=== PATIENT | female | born 1950 | race Caucasian/White ===

== ENCOUNTER 2017-12-04 15:10 | Inpatient (IN) | payer MEDICARE, OTHER ==
[2017-12-04 15:10] VITALS: BMI 28.3
[2017-12-04] MEDS ORDERED: Sodium Chloride 0.9% 1,000 ML IV ONE (16:22)
[2017-12-04] MEDS ORDERED: Iohexol 240 (50 ml) PO STA (16:22)
[2017-12-04] MEDS ORDERED: Iohexol 240 (50 ml) ONE (16:38)
[2017-12-04] MEDS ORDERED: Sodium Chloride 0.9% 1,000 ML ONE (16:39)
[2017-12-04 16:41] LABS: BASO % 0.3 % (0.0-2.0); EOS # 0.1 K/uL (0.0-0.7); EOS % 0.9 % (0.0-4.0); HEMOGLOBIN 13.5 g/dL (11.0-16.0); LYMPH # 1.9 K/uL (1.0-4.3); LYMPH % 32.1 % (20.0-40.0); MEAN CORPUSCULAR HEMOGLOBIN 29.3 pg (27.0-31.0); MEAN CORPUSCULAR HGB CONC 34.5 g/dL (33.0-37.0); MEAN PLATELET VOLUME 7.9 fL (7.2-11.7); MONO # 0.7 K/uL (0.0-0.8); MONO % 12.5 % (0.0-10.0); NEUT # 3.2 K/uL (1.8-7.0); NEUT % 54.2 % (50.0-75.0); NRBC % 0.1 % (0.0-2.0); RBC 4.61 Mil/uL (3.80-5.20); RED CELL DISTRIBUTION WIDTH 13.7 % (11.5-14.5); WHITE BLOOD COUNT 5.9 K/uL (4.8-10.8)
[2017-12-04 17:19] LABS: SQUAMOUS EPITHIAL 1 /hpf (0-5); URINE BACTERIA RARE (<OCC); URINE BILIRUBIN NEGATIVE (NEGATIVE); URINE BLOOD NEGATIVE (NEGATIVE); URINE CLARITY Clear (Clear); URINE COLOR Yellow (YELLOW); URINE GLUCOSE (UA) NORMAL (Normal); URINE LEUKOCYTE ESTERASE 1+ Leu/uL (Negative); URINE PROTEIN NEGATIVE (NEGATIVE); URINE UROBILINOGEN NORMAL mg/dL (0.2-1.0)
[2017-12-04 17:22] LABS: ALB/GLOB RATIO 1.1 (1.0-2.1); ALBUMIN 3.4 g/dL (3.5-5.0); ALT/SGPT 70 U/L (9-52); AST/SGOT 64 U/L (14-36); BLOOD UREA NITROGEN 12 mg/dL (7-17); CALCIUM 8.8 mg/dl (8.6-10.4); GFR AFRICAN-AMERICAN > 60; GFR NON-AFRICAN AMERICAN > 60; LIPASE 66 U/L (23-300)
--- NOTE | 2017-12-04 17:49 | C.PDOC ---
History Of Present Illness <Kimberly Ordoñez - Last Filed: 12/04/17 18:47> <RozRaimundo - Last Filed: 12/04/17 20:37> 67-year-old female, presents to the emergency department with complaints of 1.5 week duration of non-bloody/watery diarrhea. Patient has three episodes a day. One episode of vomiting and abdominal bloating. Patient notes she had a colonscopy done by Dr Horowitz last year. She was evaluated by her PMD when these symptoms started and was treated with Immodium and Levo. Today symptoms persisted and she was seen by Dr Horowitz, who instructed pt to come to ED for further evaluation. Denies fever, chest pain, sob, dysuria, urinary frequency, or travel. Information from her son. (Kimberly Ordoñez) History Per: Patient History/Exam Limitations: no limitations Current Symptoms Are (Timing): Still Present Severity: Moderate <Kimberly Ordoñez - Last Filed: 12/04/17 18:47> <AutumnmaureenRaimundo - Last Filed: 12/04/17 20:37> Time Seen by Provider: 12/04/17 15:45 Chief Complaint (Nursing): GI Problem Past Medical History Reviewed: Historical Data, Nursing Documentation, Vital Signs - Medical History PMH: Hypercholesterolemia, Hypothyroidism, Osteoporosis Denies: Chronic Kidney Disease Family History: States: No Known Family Hx - Social History Hx Alcohol Use: No Hx Substance Use: No <Kimberly Ordoñez - Last Filed: 12/04/17 18:47> Vital Signs: Last Vital Signs Temp 97.6 F 12/04/17 15:25 Pulse 97 H 12/04/17 18:00 Resp 20 12/04/17 18:00 BP 105/71 12/04/17 18:00 Pulse Ox 98 12/04/17 18:55 Review Of Systems Constitutional: Negative for: Fever, Chills Cardiovascular: Negative for: Chest Pain, Palpitations Respiratory: Negative for: Shortness of Breath Gastrointestinal: Positive for: Diarrhea. Negative for: Nausea, Vomiting, Hematochezia, Hematemesis Musculoskeletal: Negative for: Back Pain <GlennapaytonrosanaKimberly - Last Filed: 12/04/17 18:47> Physical Exam - Physical Exam Appears: Non-toxic, No Acute Distress Skin: Normal Color, Warm, Dry, No Rash Head: Atraumatic, Normacephalic Eye(s): bilateral: Normal Inspection, EOMI Nose: Normal Oral Mucosa: Moist Lips: Normal Appearing Neck: Normal ROM Chest: Symmetrical Cardiovascular: Rhythm Regular Respiratory: Normal Breath Sounds, No Accessory Muscle Use Gastrointestinal/Abdominal: Soft, No Tenderness, No Guarding, No Rebound Extremity: Normal ROM, No Deformity, No Swelling Neurological/Psych: Oriented x3, Normal Speech <Kimberly Ordoñez - Last Filed: 12/04/17 18:47> ED Course And Treatment - Laboratory Results Result Diagrams: 12/04/17 16:34 12/04/17 16:34 O2 Sat by Pulse Oximetry: 98 (RA) Pulse Ox Interpretation: Normal Progress Note: Bloodwork, CT Abd/Pel, stool culture ordered and reviewed. Patient treated with Protonix, and IVFs. Case discussed with Dr Horowitz,who requests admission for further evaluation and observation. Case endorsed to Dr Courtney, pending CT and re-evaluation. <Kimberly Ordoñez - Last Filed: 12/04/17 18:47> - Laboratory Results Result Diagrams: 12/04/17 16:34 12/04/17 16:34 <Raimundo Courtney - Last Filed: 12/04/17 20:37> Disposition - Disposition Disposition Time: 18:53 <Kimberly Ordoñez - Last Filed: 12/04/17 18:47> Discussed With DrRico: Risa Waters Comment: accepted the pt onhis service and took over the care at 8:36 PM Doctor Will See Patient In The: Hospital Counseled Patient/Family Regarding: Studies Performed, Diagnosis - POA Present On Arrival: Poor Glycemic Control <Raimundo Courtney - Last Filed: 12/04/17 20:37> - Disposition Disposition: HOSPITALIZED Condition: FAIR Forms: [facility] (Icelandic) - Clinical Impression Clinical Impression: Colitis, Abdominal pain, Diarrhea - Scribe Statement The provider has reviewed the documentation as recorded by the Scribe (Ivan Hussein) <Kimberly Ordoñez - Last Filed: 12/04/17 18:47> <Raimundo Courtney - Last Filed: 12/04/17 20:37> - Scribe Statement All medical record entries made by the Scribe were at my direction and personally dictated by me. I have reviewed the chart and agree that the record accurately reflects my personal performance of the history, physical exam, medical decision making, and the department course for this patient. I have also personally directed, reviewed, and agree with the discharge instructions and disposition. (Kimberly Ordoñez) Decision To Admit <Kimberly Ordoñez - Last Filed: 12/04/17 18:47> - Pt Status Changed To: Hospital Disposition Of: Inpatient - Admit Certification Admit to Inpatient:: After my assessment, the patient will require hospitalization for at least two midnights. This is because of the severity of symptoms shown, intensity of services needed, and/or the medical risk in this patient being treated as an outpatient. - InPatient: Physician Admission Certification: I certify that this patient requires 2 or more midnights of care for the following reason:: After my assessment, the patient will require hospitalization for at least two midnights. This is because of the severity of symptoms shown, intensity of services needed, and/or the medical risk in this patient being treated as an outpatient. - . Bed Request Type: Regular Admitting Physician: Risa Waters <Raimundo Courtney - Last Filed: 12/04/17 20:37> - . Patient Diagnosis: Colitis, Abdominal pain, Diarrhea
[2017-12-04] MEDS ORDERED: Iodixanol 320 MG/ML 100 ML BOTTLE IV ONE (18:29)
--- NOTE | 2017-12-04 20:32 | CT ---
EXAM: CT Abdomen and Pelvis With Intravenous Contrast EXAM DATE/TIME: Exam ordered 12/04/2017 4:23 PM CLINICAL HISTORY: 67 years old, female; Pain and signs and symptoms; Other: Diarrhea; Abdominal pain; Generalized TECHNIQUE: Axial computed tomography images of the abdomen and pelvis with intravenous contrast. All CT scans at this facility use one or more dose reduction techniques, viz.: automated exposure control; ma/kV adjustment per patient size (including targeted exams where dose is matched to indication; i.e. head); or iterative reconstruction technique. Coronal and sagittal reformatted images were created and reviewed. CONTRAST: 100 mL of visipaque 320 administered intravenously. COMPARISON: No relevant prior studies available. FINDINGS: Lung bases: Subpleural groundglass opacity is noted in the left lower lobe. There is a small hiatal hernia. Heart: Coronary artery calcification. ABDOMEN: Liver: Unremarkable. No mass. Gallbladder and bile ducts: Tiny hyperdensities are suggested along the dependent gallbladder wall. This could represent gallstones. No ductal dilation. Pancreas: Unremarkable. No mass. No ductal dilation. Spleen: Unremarkable. No splenomegaly. Adrenals: Unremarkable. No mass. Kidneys and ureters: There is an accessory retroaortic left renal vein. No hydronephrosis. Stomach and bowel: Air-fluid levels are noted throughout the colon. No pericolonic inflammation or mucosal thickening. Coarse calcification is noted within the retro-colonic fat posterior to the descending colon. This may represent a calcified lymph node. No obstruction. PELVIS: Appendix: No findings to suggest acute appendicitis. Bladder: Unremarkable. No mass. Reproductive: Unremarkable as visualized. ABDOMEN and PELVIS: Intraperitoneal space: Unremarkable. No free air. No significant fluid collection. Bones/joints: Mild degenerative changes are noted of the dorsal spine. No acute fracture. No dislocation. Soft tissues: Unremarkable. Vasculature: See above. Lymph nodes: Scattered lymph nodes are noted within the mesenteric fat. IMPRESSION: 1. Air-fluid levels noted throughout the colon consistent with history of diarrhea. No evidence of colitis or obstruction 2. Tiny hyperdensities are suggested along the dependent gallbladder wall. This could represent gallstones. If intervention is anticipated, this should be confirmed with ultrasound. 3. Small hiatal hernia. 4. Subpleural groundglass opacity in the left lower lobe laterally could represent an area of pneumonitis.
[2017-12-04] MEDS ORDERED: metroNIDAZOLE IV 500 mg/100 ml 500 MG/100 ML BAG IVPB STA (20:37)
[2017-12-04] MEDS ORDERED: Piperacillin/Tazobact 3.375 gm 100 ML IVPB STA (20:37)
[2017-12-04] MEDS ORDERED: metroNIDAZOLE IV 500 mg/100 ml 500 MG/100 ML BAG ONE (20:45)
[2017-12-04] MEDS ORDERED: Piperacillin/Tazobact 3.375 gm 100 ML IVPB ONE (20:45)
--- NOTE | 2017-12-04 23:46 | CP.PCM.HP ---
Past Patient History - Past Medical History & Family History Past Medical History?: Yes - Past Social History Smoking Status: Never Smoked - CARDIAC Hx Hypercholesterolemia: Yes - PULMONARY Hx Respiratory Disorders: No - NEUROLOGICAL Hx Neurological Disorder: No - HEENT Hx HEENT Problems: No - RENAL Hx Chronic Kidney Disease: No - ENDOCRINE/METABOLIC Hx Hypothyroidism: Yes - HEMATOLOGICAL/ONCOLOGICAL Hx Blood Disorders: No - INTEGUMENTARY Hx Dermatological Problems: No - MUSCULOSKELETAL/RHEUMATOLOGICAL Hx Osteoporosis: Yes - GASTROINTESTINAL Hx Gastrointestinal Disorders: No - GENITOURINARY/GYNECOLOGICAL Hx Genitourinary Disorders: No - PSYCHIATRIC Hx Substance Use: No - SURGICAL HISTORY Hx Surgeries: Yes Hx Orthopedic Surgery: Yes (RT KNEE SX) - ANESTHESIA Hx Anesthesia: Yes Hx Anesthesia Reactions: No Hx Malignant Hyperthermia: No Meds Allergies/Adverse Reactions: Allergies Allergy/AdvReac Type Severity Reaction Status Date / Time No Known Allergies Allergy Verified 12/04/17 15:27 Results - Vital Signs Recent Vital Signs: Last Vital Signs Temp 98 F 12/04/17 22:37 Pulse 92 H 12/04/17 22:37 Resp 20 12/04/17 22:37 BP 100/75 12/04/17 22:37 Pulse Ox 98 12/04/17 22:37 - Labs Result Diagrams: 12/04/17 16:34 12/04/17 16:34 Labs: Laboratory Results - last 24 hr 12/04/17 12/04/17 12/04/17 16:34 16:34 17:04 WBC 5.9 RBC 4.61 Hgb 13.5 Hct 39.2 MCV 85.0 MCH 29.3 MCHC 34.5 RDW 13.7 Plt Count 278 MPV 7.9 Neut % (Auto) 54.2 Lymph % (Auto) 32.1 [place] % (Auto) 12.5 H Eos % (Auto) 0.9 Baso % (Auto) 0.3 Neut # (Auto) 3.2 Lymph # (Auto) 1.9 [place] # (Auto) 0.7 Eos # (Auto) 0.1 Baso # (Auto) 0.0 Sodium 136 Potassium 3.3 L Chloride 103 Carbon Dioxide 22 Anion Gap 14 BUN 12 Creatinine 0.8 Est GFR ( Amer) > 60 Est GFR (Non-Af Amer) > 60 Random Glucose 131 H Calcium 8.8 Total Bilirubin 0.9 AST 64 H ALT 70 H Alkaline Phosphatase 60 Total Protein 6.4 Albumin 3.4 L Globulin 3.0 Albumin/Globulin Ratio 1.1 Lipase 66 Urine Color Yellow Urine Clarity Clear Urine pH 6.0 Ur Specific [place] 1.004 Urine Protein Negative Urine Glucose (UA) Normal Urine Ketones Trace Urine Blood Negative Urine Nitrate Negative Urine Bilirubin Negative Urine Urobilinogen Normal Ur Leukocyte Esterase 1+ H Urine WBC (Auto) 5 Urine RBC (Auto) < 1 Ur Squamous Epith Cells 1 Urine Bacteria Rare Stool Occult Blood C. difficile Ag & Toxin 12/04/17 12/04/17 19:09 19:09 WBC RBC Hgb Hct MCV MCH MCHC RDW Plt Count MPV Neut % (Auto) Lymph % (Auto) [place] % (Auto) Eos % (Auto) Baso % (Auto) Neut # (Auto) Lymph # (Auto) [place] # (Auto) Eos # (Auto) Baso # (Auto) Sodium Potassium Chloride Carbon Dioxide Anion Gap BUN Creatinine Est GFR ( Amer) Est GFR (Non-Af Amer) Random Glucose Calcium Total Bilirubin AST ALT Alkaline Phosphatase Total Protein Albumin Globulin Albumin/Globulin Ratio Lipase Urine Color Urine Clarity Urine pH Ur Specific [place] Urine Protein Urine Glucose (UA) Urine Ketones Urine Blood Urine Nitrate Urine Bilirubin Urine Urobilinogen Ur Leukocyte Esterase Urine WBC (Auto) Urine RBC (Auto) Ur Squamous Epith Cells Urine Bacteria Stool Occult Blood Negative C. difficile Ag & Toxin Negative
[2017-12-04] MEDS: Dextrose 5%/0.45% NS 1,000 ML IV SCH (23:57)
[2017-12-05] MEDS: (Novolin R) Insulin Human Regular 100 units/ml vial SC SCH ×4 (07:27→21:54)
--- NOTE | 2017-12-05 07:31 | CP.PCM.PN ---
Addendum entered and electronically signed by Toan Oscar DO 12/05/17 16:33: Stop Cipro per Dr. Waters Continue D5/Ns @ 40cc/hr pt NPO for US Abd Original Note: <Toan Oscar - Last Filed: 12/05/17 16:29> Subjective - Date & Time of Evaluation Date of Evaluation: 12/05/17 Time of Evaluation: 07:30 - Subjective Subjective: PGY-[address] Waters's service: Pt seen and examined at bedside. Nursing reports no acute events overnight. Patient denies abd pain, nausea, or vomiting this AM, but admits two episodes of watery diarrhea overnight. Patient states she was able to tolerated full breakfast this AM without difficulty. Patient is 67 yo female, with PMHx hypothyroidism, T2DM (diagnosed ~2009), presenting for intractable diarrhea. Patient reports 2 1/2 week of history of persistent non-bloody watery diarrhea. Patient sought relief at Dr. Waters's office and was given Levofloxacin and loperamide. This stopped diarrhea for two days, but diarrhea returned on friday of this week. Dr. Waters referred patient to Dr. Horowitz, who saw pt in his office. Because of two episodes of vomiting on , 12/04, Dr. Horowitz recommended pt come to ED. Patient denies abd pain at any point in course. Objective - Vital Signs/Intake and Output Vital Signs (last 24 hours): Temp Pulse Resp BP Pulse Ox 98 F 74 20 103/63 98 12/05/17 03:37 12/05/17 03:37 12/05/17 03:37 12/05/17 03:37 12/05/17 03:37 - Medications Medications: Current Medications Cyanocobalamin (Vitamin B12 1000 Mcg Tab) 1,000 mcg PO DAILY KEVIN Enoxaparin Sodium (Lovenox) 40 mg SC DAILY KEVIN Glimepiride (Amaryl) 1 mg PO DAILY KEVIN Home Med (Alendronate Sodium [Binosto]) 1 tab PO DAILY KEVIN Home Med (Mv,Min10/Folic Acid/D3/Ala/Lut [Strovite One Caplet]) 1 tab PO DAILY KEVIN Home Med (Simvastatin [Simvastatin]) 1 tab PO DAILY KEVIN Dextrose/Sodium Chloride (Dextrose 5%/0.45% Ns 1000 Ml) 1,000 mls @ 40 mls/hr IV .Q24H [facility] Last Admin: 12/04/17 23:57 Dose: 40 mls/hr Ciprofloxacin (Cipro 400mg/200ml Dsw) 400 mg in 200 mls @ 133 mls/hr IVPB BID KEVIN PRN Reason: Protocol Metronidazole (Flagyl) 500 mg in 100 mls @ 100 mls/hr IVPB BID KEVIN PRN Reason: Protocol Insulin Human Regular (Novolin R) 0 unit SC ACHS KEVIN PRN Reason: Protocol Last Admin: 12/05/17 07:27 Dose: Not Given Levothyroxine Sodium (Synthroid) 1,000 mcg PO DAILY KEVIN Loperamide HCl (Imodium) 1 mg PO TID PRN PRN Reason: Diarrhea Pantoprazole Sodium (Protonix Ec Tab) 40 mg PO DAILY KEVIN Sitagliptin Phosphate (Januvia) 1 mg PO DAILY [facility] - Labs Labs: 12/04/17 16:34 12/04/17 16:34 - Constitutional Appears: Non-toxic, No Acute Distress - Head Exam Head Exam: ATRAUMATIC, NORMAL INSPECTION - Eye Exam Eye Exam: EOMI. absent: Scleral icterus Pupil Exam: PERRL - ENT Exam ENT Exam: Mucous Membranes Moist - Neck Exam Neck Exam: Full ROM - Respiratory Exam Respiratory Exam: Clear to Ausculation Bilateral, NORMAL BREATHING PATTERN. absent: Rales, Rhonchi, Wheezes - Cardiovascular Exam Cardiovascular Exam: REGULAR RHYTHM, +S1, +S2 - GI/Abdominal Exam GI & Abdominal Exam: Soft, Normal Bowel Sounds. absent: Distended, Firm, Guarding, Tenderness, Rebound Additional comments: no rovsing/escoto/mcburney - Extremities Exam Extremities Exam: Normal Inspection. absent: Pedal Edema, Tenderness - Back Exam Back Exam: absent: CVA tenderness (L), CVA tenderness (R) - Neurological Exam Neurological Exam: Alert, Awake, Oriented x3 - Psychiatric Exam Psychiatric exam: Normal Affect, Normal Mood - Skin Skin Exam: Dry, Normal Color, Warm Assessment and Plan - Assessment and Plan (Free Text) Plan: Intractable diarrhea Admit to med/surg WBC 5.9, Afebrile Dr. Horowitz GI work and family life consultant - help appreciated CT A/P (12/04/17): Air fluid levels noted throughout colon c/w hx of diarrhea. No colitis/obstruction. Hyperdensities in gallbladder wall that could represent gallstones. Small hiatal hernia. Groundglass opacity in in LLL that could represent area of pneumonitis. (see full report) Colonoscopy (08/2016): Non-bleeding external/internal hemorrhoids. Congested mucosa in distal descending colon. Biopsied. Moderate colonic spasm. Terminated early due to bradycardic episode. Lipase 66 Stool occult blood negative C diff negative Cipro 400mg IV Q12H Flagyl 500mg IV Q12H - Zosyn x1 in ED Loperamide 2mg PO TID PRN f/u O&P, fecal leukocytes Transaminitis AST/ALT 64/70 f/u hepatitis panel f/u US Abd Gallstones? CT A/P (12/04/17): Hyperdensities in gallbladder wall that could represent gallstones. f/u US Abd Type two diabetes mellitus Accuchecks ACHS Hypoglycemia protocol Glimepiride 4mg PO daily Januvia 25mg PO Daily Crestor 5mg PO HS f/u A1C Hypothyroidism Synthroid 25mcg PO QAM f/u TSH, Free T4 Abnormal UA UA (12/04/17): 1+ LE, WBC 5/HPF, negative nitrate, clean catch Pt denies symptoms - no treatment Electrolyte abnormality K 3.3, repleted Stiff neck Lidocaine 5% patch Daily Prophylaxis Heart healthy diet Lovenox 40mg SC daily Protonix 40mg PO Daily SCDs Toan Oscar PGY-[address] Waters <Risa Waters - Last Filed: 12/08/17 13:26> Objective - Vital Signs/Intake and Output Vital Signs (last 24 hours): Temp Pulse Resp BP Pulse Ox 97.3 F L 80 20 96/61 L 100 12/08/17 10:06 12/08/17 10:06 12/08/17 10:06 12/08/17 10:06 12/08/17 10:06 Intake and Output: 12/08/17 12/08/17 06:59 18:59 Intake Total 1300 400 Balance 1300 400 - Medications Medications: Current Medications Cyanocobalamin (Vitamin B12 1000 Mcg Tab) 1,000 mcg PO DAILY [facility] Last Admin: 12/08/17 10:23 Dose: 1,000 mcg Dextrose (Dextrose 50% Inj) 0 ml IV STAT PRN; Protocol PRN Reason: Hypoglycemia Protocol Last Admin: 12/06/17 22:06 Dose: 50 ml Dextrose (Glutose 15) 0 gm PO ONCE PRN; Protocol PRN Reason: Hypoglycemia Protocol Enoxaparin Sodium (Lovenox) 40 mg SC DAILY [facility] Last Admin: 12/08/17 10:23 Dose: 40 mg Glimepiride (Amaryl) 4 mg PO DAILY [facility] Last Admin: 12/06/17 10:26 Dose: 4 mg Glucagon (Glucagen Diagnostic Kit) 0 mg IM STAT PRN; Protocol PRN Reason: Hypoglycemia Protocol Metronidazole (Flagyl) 500 mg in 100 mls @ 100 mls/hr IVPB BID KEVIN PRN Reason: Protocol Last Admin: 12/08/17 10:21 Dose: 100 mls/hr Dextrose (Dextrose 5% In Water 1000 Ml) 1,000 mls @ 0 mls/hr IV .Q0M PRN; Protocol; Per Protocol PRN Reason: Hypoglycemia Protocol Insulin Human Regular (Novolin R) 0 unit SC ACHS KEVIN PRN Reason: Protocol Last Admin: 12/08/17 12:38 Dose: 1 unit Levothyroxine Sodium (Synthroid) 25 mcg PO 0630 [facility] Last Admin: 12/08/17 05:38 Dose: Not Given Lidocaine (Lidoderm) 1 ea TD DAILY [facility] Last Admin: 12/08/17 10:22 Dose: 1 ea Loperamide HCl (Imodium) 2 mg PO TID PRN PRN Reason: Diarrhea Pantoprazole Sodium (Protonix Ec Tab) 40 mg PO DAILY [facility] Last Admin: 12/08/17 10:22 Dose: 40 mg Rosuvastatin Calcium (Crestor) 5 mg PO HS [facility] Last Admin: 12/07/17 21:11 Dose: 5 mg Sitagliptin Phosphate (Januvia) 25 mg PO DAILY [facility] Last Admin: 12/06/17 10:25 Dose: 25 mg Vitamin B Complex/Vitamin C (Berocca) 1 tab PO DAILY [facility] Last Admin: 12/08/17 10:36 Dose: 1 tab - Labs Labs: 12/06/17 07:12 12/06/17 07:12 PT 13.4 SECONDS (9.7-12.2) H 12/06/17 07:12 INR 1.2 12/06/17 07:12 APTT 28 SECONDS (21-34) 12/06/17 07:12
[2017-12-05] MEDS: Vitamin B Complex/Vitamin C Tab PO SCH (09:36)
[2017-12-05] MEDS: Pantoprazole 40 mg EC Tab PO SCH (09:39)
[2017-12-05] MEDS: Enoxaparin 40 mg Syringe SC SCH (09:42)
[2017-12-05] MEDS ORDERED: Ciprofloxacin 400mg/200ml D5W 400 MG/200 ML BAG IVPB SCH (10:00)
[2017-12-05] MEDS ORDERED: FOLIC ACID PO SCH (10:00)
[2017-12-05] MEDS ORDERED: Home Med 1 UNIT (Alendronate Sodium [Binosto] 1 TAB) PO SCH ×2 (10:00)
[2017-12-05] MEDS ORDERED: ALA PO SCH (10:00)
[2017-12-05] MEDS ORDERED: Levothyroxine 25 MCG TAB PO SCH ×2 (10:00)
[2017-12-05] MEDS ORDERED: D3 PO SCH (10:00)
[2017-12-05] MEDS ORDERED: MV MIN10 PO SCH (10:00)
[2017-12-05] MEDS ORDERED: LUT PO SCH (10:00)
[2017-12-05] MEDS ORDERED: Home Med 1 UNIT (Simvastatin [Simvastatin] 1 TAB) PO SCH (10:00)
[2017-12-05] MEDS: metroNIDAZOLE IV 500 mg/100 ml 500 MG/100 ML BAG IVPB SCH ×2 (10:46→17:50)
[2017-12-05] MEDS ORDERED: Glucagon Recombinant 1 mg Inj IM PRN (12:41)
[2017-12-05] MEDS ORDERED: Dextrose 50% SYRINGE Inj (50 ml) IV PRN (12:41)
[2017-12-05] MEDS ORDERED: Potassium Chloride 20 mEq ER Tab PO ONE (13:04)
[2017-12-05] MEDS: Lidocaine 5% Patch TD SCH (13:33)
--- NOTE | 2017-12-05 16:42 | CP.PCM.PN ---
Subjective - Date & Time of Evaluation Date of Evaluation: 12/05/17 Time of Evaluation: 09:40 - Subjective Subjective: clinically same Objective - Vital Signs/Intake and Output Vital Signs (last 24 hours): Temp Pulse Resp BP Pulse Ox 98.1 F 73 20 94/61 L 98 12/05/17 08:44 12/05/17 08:44 12/05/17 08:44 12/05/17 08:44 12/05/17 08:44 Intake and Output: 12/05/17 12/05/17 06:59 18:59 Intake Total 960 Balance 960 - Medications Medications: Current Medications Cyanocobalamin (Vitamin B12 1000 Mcg Tab) 1,000 mcg PO DAILY [facility] Last Admin: 12/05/17 09:36 Dose: 1,000 mcg Dextrose (Dextrose 50% Inj) 0 ml IV STAT PRN; Protocol PRN Reason: Hypoglycemia Protocol Dextrose (Glutose 15) 0 gm PO ONCE PRN; Protocol PRN Reason: Hypoglycemia Protocol Enoxaparin Sodium (Lovenox) 40 mg SC DAILY [facility] Last Admin: 12/05/17 09:42 Dose: 40 mg Glimepiride (Amaryl) 4 mg PO DAILY [facility] Last Admin: 12/05/17 09:42 Dose: 4 mg Glucagon (Glucagen Diagnostic Kit) 0 mg IM STAT PRN; Protocol PRN Reason: Hypoglycemia Protocol Dextrose/Sodium Chloride (Dextrose 5%/0.45% Ns 1000 Ml) 1,000 mls @ 40 mls/hr IV .Q24H [facility] Last Admin: 12/04/17 23:57 Dose: 40 mls/hr Metronidazole (Flagyl) 500 mg in 100 mls @ 100 mls/hr IVPB BID KEVIN PRN Reason: Protocol Last Admin: 12/05/17 10:46 Dose: 100 mls/hr Dextrose (Dextrose 5% In Water 1000 Ml) 1,000 mls @ 0 mls/hr IV .Q0M PRN; Protocol; Per Protocol PRN Reason: Hypoglycemia Protocol Insulin Human Regular (Novolin R) 0 unit SC ACHS [facility] PRN Reason: Protocol Last Admin: 12/05/17 12:01 Dose: Not Given Levothyroxine Sodium (Synthroid) 25 mcg PO 0630 [facility] Lidocaine (Lidoderm) 1 ea TD DAILY [facility] Last Admin: 12/05/17 13:33 Dose: 1 ea Loperamide HCl (Imodium) 2 mg PO TID PRN PRN Reason: Diarrhea Pantoprazole Sodium (Protonix Ec Tab) 40 mg PO DAILY [facility] Last Admin: 12/05/17 09:39 Dose: 40 mg Pneumococcal Polyvalent Vaccine (Pneumovax 23 Vaccine) 0.5 ml IM .ONCE ONE Stop: 12/06/17 10:01 Rosuvastatin Calcium (Crestor) 5 mg PO [facility] Sitagliptin Phosphate (Januvia) 25 mg PO DAILY [facility] Last Admin: 12/05/17 09:43 Dose: 25 mg Vitamin B Complex/Vitamin C (Berocca) 1 tab PO DAILY [facility] Last Admin: 12/05/17 09:36 Dose: 1 tab - Labs Labs: 12/04/17 16:34 12/04/17 16:34 - Constitutional Appears: Well - Head Exam Head Exam: ATRAUMATIC, NORMAL INSPECTION, NORMOCEPHALIC - Eye Exam Eye Exam: EOMI, Normal appearance, PERRL Pupil Exam: NORMAL ACCOMODATION, PERRL - ENT Exam ENT Exam: Mucous Membranes Moist, Normal Exam - Neck Exam Neck Exam: Full ROM, Normal Inspection. absent: Lymphadenopathy - Respiratory Exam Respiratory Exam: Decreased Breath Sounds - Cardiovascular Exam Cardiovascular Exam: REGULAR RHYTHM, +S1, +S2 - GI/Abdominal Exam GI & Abdominal Exam: Soft, Diminished Bowel Sounds - Rectal Exam Rectal Exam: Deferred Assessment and Plan - Assessment and Plan (Free Text) Plan: Intractable diarrhea Admit to med/surg WBC 5.9, Afebrile Dr. Horowitz GI business operations consultant - help appreciated CT A/P (12/04/17): Air fluid levels noted throughout colon c/w hx of diarrhea. No colitis/obstruction. Hyperdensities in gallbladder wall that could represent gallstones. Small hiatal hernia. Groundglass opacity in in LLL that could represent area of pneumonitis. (see full report) Colonoscopy (08/2016): Non-bleeding external/internal hemorrhoids. Congested mucosa in distal descending colon. Biopsied. Moderate colonic spasm. Terminated early due to bradycardic episode. Lipase 66 Stool occult blood negative C diff negative Cipro 400mg IV Q12H Flagyl 500mg IV Q12H - Zosyn x1 in ED Loperamide 2mg PO TID PRN f/u O&P, fecal leukocytes Transaminitis AST/ALT 64/70 f/u hepatitis panel f/u US Abd Gallstones? CT A/P (12/04/17): Hyperdensities in gallbladder wall that could represent gallstones. f/u US Abd Type two diabetes mellitus Accuchecks ACHS Hypoglycemia protocol Glimepiride 4mg PO daily Januvia 25mg PO Daily Crestor 5mg PO HS f/u A1C Hypothyroidism Synthroid 25mcg PO QAM f/u TSH, Free T4 Abnormal UA UA (12/04/17): 1+ LE, WBC 5/HPF, negative nitrate, clean catch Pt denies symptoms - no treatment Electrolyte abnormality K 3.3, repleted Stiff neck Lidocaine 5% patch Daily Prophylaxis Heart healthy diet Lovenox 40mg SC daily Protonix 40mg PO Daily SCDs
[2017-12-05 17:36] LABS: HEPATITIS B SURFACE AG Negative (NEGATIVE)
[2017-12-05 17:42] LABS: HEPATITIS A IGM NEGATIVE (NEGATIVE); HEPATITIS B CORE AB NEGATIVE (NEGATIVE)
[2017-12-05 17:53] LABS: HEPATITIS C ANTIBODY NEGATIVE (NEGATIVE)
--- NOTE | 2017-12-05 21:09 | US ---
EXAM: US Abdomen Complete CLINICAL HISTORY: 67 years old, female; Abnormal findings; Abnormal radiologic finding of the abdomen; Radiologic exam and body structure: CT abd; Additional info: Transaminitis; Eval poss gallstones from CT TECHNIQUE: Real-time ultrasound of the abdomen (complete) with image documentation. COMPARISON: CT - ABD PELVIS PO IV CONTRAST 2017-12-04 19:03 FINDINGS: Liver: Measured at 13 cm. Increased echogenicity. Gallbladder: Sludge. No gallbladder wall edema. Reported negative sonographic Rendon's sign. Common bile duct: No dilation. Pancreas: Limited evaluation. Kidneys: No acute abnormality as visualized. No hydronephrosis. Spleen: No splenomegaly. Aorta/IVC: No acute abnormality as visualized. Limited evaluation. IMPRESSION: Sludge in the gallbladder without sonographic evidence of acute cholecystitis. Evidence of fatty infiltration in the liver.
[2017-12-06] MEDS: Dextrose 5%/0.45% NS 1,000 ML IV SCH ×3 (03:27→23:57)
[2017-12-06] MEDS: Levothyroxine 25 MCG TAB PO SCH (05:56)
[2017-12-06 07:32] LABS: BASO % 0.8 % (0.0-2.0); EOS # 0.2 K/uL (0.0-0.7); EOS % 2.8 % (0.0-4.0); HEMOGLOBIN 12.2 g/dL (11.0-16.0); LYMPH # 1.7 K/uL (1.0-4.3); LYMPH % 28.2 % (20.0-40.0); MEAN CELL VOLUME 86.5 fL (81.0-99.0); MEAN CORPUSCULAR HEMOGLOBIN 29.2 pg (27.0-31.0); MEAN CORPUSCULAR HGB CONC 33.8 g/dL (33.0-37.0); MEAN PLATELET VOLUME 8.8 fL (7.2-11.7); MONO # 0.7 K/uL (0.0-0.8); MONO % 11.9 % (0.0-10.0); NEUT # 3.3 K/uL (1.8-7.0); NEUT % 56.3 % (50.0-75.0); RBC 4.18 Mil/uL (3.80-5.20); RED CELL DISTRIBUTION WIDTH 14.2 % (11.5-14.5); WHITE BLOOD COUNT 5.9 K/uL (4.8-10.8)
[2017-12-06 07:33] LABS: INR 1.2; PROTHROMBIN TIME 13.4 SECONDS (9.7-12.2)
[2017-12-06 07:53] LABS: ALB/GLOB RATIO 1.1 (1.0-2.1); ALT/SGPT 63 U/L (9-52); AST/SGOT 62 U/L (14-36); BLOOD UREA NITROGEN 5 mg/dL (7-17); CALCIUM 8.3 mg/dl (8.6-10.4); GFR AFRICAN-AMERICAN > 60; GFR NON-AFRICAN AMERICAN > 60
[2017-12-06] MEDS: (Novolin R) Insulin Human Regular 100 units/ml vial SC SCH ×4 (07:55→22:36)
[2017-12-06] MEDS ORDERED: Pneumococcal 23-Valent Vaccine IM ONE (10:00)
[2017-12-06] MEDS: Vitamin B Complex/Vitamin C Tab PO SCH (10:25)
[2017-12-06] MEDS: Pantoprazole 40 mg EC Tab PO SCH (10:26)
[2017-12-06] MEDS: Enoxaparin 40 mg Syringe SC SCH (10:27)
[2017-12-06] MEDS: Lidocaine 5% Patch TD SCH (10:28)
[2017-12-06] MEDS: metroNIDAZOLE IV 500 mg/100 ml 500 MG/100 ML BAG IVPB SCH ×2 (10:34→17:59)
[2017-12-06] MEDS ORDERED: Peg-Electrolyte Oral Soln 4L (Golytely) PO ONE (11:00)
--- NOTE | 2017-12-06 11:31 | CP.PCM.PN ---
Subjective - Date & Time of Evaluation Date of Evaluation: 12/06/17 Time of Evaluation: 08:20 - Subjective Subjective: clinically same Objective - Vital Signs/Intake and Output Vital Signs (last 24 hours): Temp Pulse Resp BP Pulse Ox 98.1 F 71 20 97/61 L 97 12/06/17 08:00 12/06/17 08:00 12/06/17 08:00 12/06/17 08:00 12/06/17 08:00 Intake and Output: 12/06/17 12/06/17 06:59 18:59 Intake Total 1080 Balance 1080 - Medications Medications: Current Medications Bisacodyl (Dulcolax) 10 mg PO ONCE ONE Stop: 12/06/17 17:01 Cyanocobalamin (Vitamin B12 1000 Mcg Tab) 1,000 mcg PO DAILY [facility] Last Admin: 12/06/17 10:25 Dose: 1,000 mcg Dextrose (Dextrose 50% Inj) 0 ml IV STAT PRN; Protocol PRN Reason: Hypoglycemia Protocol Dextrose (Glutose 15) 0 gm PO ONCE PRN; Protocol PRN Reason: Hypoglycemia Protocol Enoxaparin Sodium (Lovenox) 40 mg SC DAILY [facility] Last Admin: 12/06/17 10:27 Dose: 40 mg Glimepiride (Amaryl) 4 mg PO DAILY [facility] Last Admin: 12/06/17 10:26 Dose: 4 mg Glucagon (Glucagen Diagnostic Kit) 0 mg IM STAT PRN; Protocol PRN Reason: Hypoglycemia Protocol Dextrose/Sodium Chloride (Dextrose 5%/0.45% Ns 1000 Ml) 1,000 mls @ 40 mls/hr IV .Q24H [facility] Last Admin: 12/06/17 03:29 Dose: 40 mls/hr Metronidazole (Flagyl) 500 mg in 100 mls @ 100 mls/hr IVPB BID [facility] PRN Reason: Protocol Last Admin: 12/06/17 10:34 Dose: 100 mls/hr Dextrose (Dextrose 5% In Water 1000 Ml) 1,000 mls @ 0 mls/hr IV .Q0M PRN; Protocol; Per Protocol PRN Reason: Hypoglycemia Protocol Insulin Human Regular (Novolin R) 0 unit SC ACHS [facility] PRN Reason: Protocol Last Admin: 12/06/17 11:23 Dose: Not Given Levothyroxine Sodium (Synthroid) 25 mcg PO 0630 [facility] Last Admin: 12/06/17 05:56 Dose: 25 mcg Lidocaine (Lidoderm) 1 ea TD DAILY [facility] Last Admin: 12/06/17 10:28 Dose: 1 ea Loperamide HCl (Imodium) 2 mg PO TID PRN PRN Reason: Diarrhea Metoclopramide HCl (Reglan) 5 mg IVP Q6 [facility] Stop: 12/08/17 06:01 Pantoprazole Sodium (Protonix Ec Tab) 40 mg PO DAILY [facility] Last Admin: 12/06/17 10:26 Dose: 40 mg Rosuvastatin Calcium (Crestor) 5 mg PO HS [facility] Last Admin: 12/05/17 21:52 Dose: 5 mg Sitagliptin Phosphate (Januvia) 25 mg PO DAILY [facility] Last Admin: 12/06/17 10:25 Dose: 25 mg Vitamin B Complex/Vitamin C (Berocca) 1 tab PO DAILY [facility] Last Admin: 12/06/17 10:25 Dose: 1 tab - Labs Labs: 12/06/17 07:12 12/06/17 07:12 PT 13.4 SECONDS (9.7-12.2) H 12/06/17 07:12 INR 1.2 12/06/17 07:12 APTT 28 SECONDS (21-34) 12/06/17 07:12 - Constitutional Appears: Well - Head Exam Head Exam: ATRAUMATIC, NORMAL INSPECTION, NORMOCEPHALIC - Eye Exam Eye Exam: EOMI, Normal appearance, PERRL Pupil Exam: NORMAL ACCOMODATION, PERRL - ENT Exam ENT Exam: Mucous Membranes Moist, Normal Exam - Neck Exam Neck Exam: Full ROM, Normal Inspection. absent: Lymphadenopathy - Respiratory Exam Respiratory Exam: Decreased Breath Sounds - Cardiovascular Exam Cardiovascular Exam: REGULAR RHYTHM, +S1, +S2 - GI/Abdominal Exam GI & Abdominal Exam: Soft, Diminished Bowel Sounds - Rectal Exam Rectal Exam: Deferred Assessment and Plan - Assessment and Plan (Free Text) Plan: cancer marker negative discussed iwth pt usg gb sludge without any evidence of cholecysttiis stil diarrhoea persist work up under progress..
--- NOTE | 2017-12-06 14:19 | PN ---
DATE: LOCATION: 365, bed B. SUBJECTIVE: This is a 67 years old female, seen and examined in rounds with again recurrent episodes of 00:38 unclear etiology. Her chart is reviewed including but not limited to most recent lab and radiology study results, current and previous medication lists, current and previous medical events. Today's lab showed normal CBC but increased PT to 13.4, CO2 content of 19 indicative of metabolic acidosis, calcium 9.3, AST 62, ALT 63 with low total protein and low albumin. Hepatitis profile was reported to be negative. Official report of the ultrasound showed evidence of gallbladder stones without evidence of active cholecystitis. Fatty infiltrate of the liver was reported. PHYSICAL EXAMINATION: GENERAL: A 67 years old female. VITAL SIGNS: Afebrile with pulse rate of 68, respiratory rate 20-22, blood pressure of 106/70. HEENT: Showed pale, dry oral mucous membranes, anicteric sclerae. LUNGS: A few scattered mild crepitations. Breathing sounds are present bilaterally. HEART: Positive S1 and S2. ABDOMEN: Soft with slight generalized tenderness with mild distention. No mass or organomegaly. No rebound tenderness or guarding. RECTAL: The patient refused. EXTREMITIES: Without edema, clubbing, or cyanosis. NEUROLOGIC: No reported new neurological deficits, sensory or motor. IMPRESSION: 1. of unclear etiology associated with metabolic acidosis. 2. Malnutrition with hypoalbuminemia, hypoproteinemia. 3. Known history of hypothyroidism, osteoporosis with hyperlipidemia as per record. 4. Gallbladder stone without evidence of acute cholecystitis by radiological study results. 5. Abnormal CAT scan of the abdomen and pelvis with possible pneumonitis. SUGGESTIONS: 1. Continue current management. 2. We will schedule the patient for colonoscopy at a.m. when she is more stable clinically. 3. Further recommendation and evaluation to follow, awaiting cancer marker results. Marlin Alvarado MD
[2017-12-06] MEDS ORDERED: Bisacodyl 5mg EC Tab PO ONE (17:00)
[2017-12-06] MEDS ORDERED: Dextrose 50% SYRINGE Inj (50 ml) ONE (22:06)
[2017-12-07] MEDS: Levothyroxine 25 MCG TAB PO SCH (05:38)
[2017-12-07] MEDS: (Novolin R) Insulin Human Regular 100 units/ml vial SC SCH ×4 (08:27→22:02)
[2017-12-07] MEDS: Pantoprazole 40 mg EC Tab PO SCH (09:48)
[2017-12-07] MEDS: metroNIDAZOLE IV 500 mg/100 ml 500 MG/100 ML BAG IVPB SCH ×2 (09:48→18:06)
[2017-12-07] MEDS: Lidocaine 5% Patch TD SCH (09:48)
[2017-12-07] MEDS: Enoxaparin 40 mg Syringe SC SCH (09:48)
[2017-12-07] MEDS: Vitamin B Complex/Vitamin C Tab PO SCH (09:48)
[2017-12-07] MEDS ORDERED: Peg-Electrolyte Oral Soln 4L (Golytely) PO ONE (10:00)
--- NOTE | 2017-12-07 14:08 | PN ---
DATE: 12/07/2017 LOCATION: 365, bed B. SUBJECTIVE: This is a 67-year-old female seen and examined in rounds. The entire chart is reviewed including, but not limited to the most recent lab and radiology study results, current and the previous medication list, current and the previous medical events. Case discussed with the staff at length as well as the patient's own son. Today's lab showed blood glucose level of 89. Rest of the lab results are still pending. The patient still has periods of diarrhea and crampy abdominal pain, for which she is prepared for potential colonoscopy at a.m. PHYSICAL EXAMINATION: GENERAL: A 67-year-old female, awake, alert, and oriented. VITAL SIGNS: Afebrile, with pulse of 70, respiratory rate 20 to 22, blood pressure 110/76. HEENT: Showed pale, dry, oral mucous membranes. Nonicteric sclerae. LUNGS: Few scattered crepitations. Decreased air entry at bases. HEART: Positive S1 and S2. ABDOMEN: Soft with mild generalized tenderness, mildly distended. Bowel sounds are hyperactive. No mass or organomegaly. No rebound tenderness or guarding. EXTREMITIES: Without edema, clubbing, or cyanosis. RECTAL EXAMINATION: The patient refused. NEUROLOGIC: No reported new neurological deficits, sensory or motor. IMPRESSION: 1. Diarrhea of unclear etiology, to rule out infectious versus mechanical diarrhea, associated with metabolic acidosis. However, the possibility of diabetic diarrhea was raised. 2. Hypoalbuminemia with malnutrition. 3. Known history of hyperlipidemia, osteoarthritis with osteoporosis, hypothyroidism as reported. 4. No black tarry stool without evidence of acute cholecystitis. 5. Abnormal CAT scan of the abdomen and pelvis with possible pneumonia. SUGGESTIONS: 1. Continue current management. 2. Rehydration. 3. The patient for colonoscopy at a.m. Marlin Alvarado MD
[2017-12-07] MEDS ORDERED: Bisacodyl 5mg EC Tab PO ONE ×2 (17:00→18:15)
--- NOTE | 2017-12-07 18:04 | CP.PCM.PN ---
Subjective - Date & Time of Evaluation Date of Evaluation: 12/07/17 Time of Evaluation: 07:20 - Subjective Subjective: clinically same Objective - Vital Signs/Intake and Output Vital Signs (last 24 hours): Temp Pulse Resp BP Pulse Ox 97.9 F 86 20 133/74 99 12/07/17 16:00 12/07/17 16:00 12/07/17 16:00 12/07/17 16:00 12/07/17 16:00 Intake and Output: 12/07/17 12/07/17 06:59 18:59 Intake Total 1190 980 Balance 1190 980 - Medications Medications: Current Medications Bisacodyl (Dulcolax) 10 mg PO ONCE ONE Stop: 12/07/17 18:16 Cyanocobalamin (Vitamin B12 1000 Mcg Tab) 1,000 mcg PO DAILY [facility] Last Admin: 12/07/17 09:47 Dose: 1,000 mcg Dextrose (Dextrose 50% Inj) 0 ml IV STAT PRN; Protocol PRN Reason: Hypoglycemia Protocol Last Admin: 12/06/17 22:06 Dose: 50 ml Dextrose (Glutose 15) 0 gm PO ONCE PRN; Protocol PRN Reason: Hypoglycemia Protocol Enoxaparin Sodium (Lovenox) 40 mg SC DAILY [facility] Last Admin: 12/07/17 09:48 Dose: 40 mg Glimepiride (Amaryl) 4 mg PO DAILY [facility] Last Admin: 12/06/17 10:26 Dose: 4 mg Glucagon (Glucagen Diagnostic Kit) 0 mg IM STAT PRN; Protocol PRN Reason: Hypoglycemia Protocol Dextrose/Sodium Chloride (Dextrose 5%/0.45% Ns 1000 Ml) 1,000 mls @ 40 mls/hr IV .Q24H [facility] Last Admin: 12/06/17 23:57 Dose: 40 mls/hr Metronidazole (Flagyl) 500 mg in 100 mls @ 100 mls/hr IVPB BID [facility] PRN Reason: Protocol Last Admin: 12/07/17 09:48 Dose: 100 mls/hr Dextrose (Dextrose 5% In Water 1000 Ml) 1,000 mls @ 0 mls/hr IV .Q0M PRN; Protocol; Per Protocol PRN Reason: Hypoglycemia Protocol Insulin Human Regular (Novolin R) 0 unit SC ACHS [facility] PRN Reason: Protocol Last Admin: 12/07/17 11:54 Dose: Not Given Levothyroxine Sodium (Synthroid) 25 mcg PO 0630 [facility] Last Admin: 12/07/17 05:38 Dose: 25 mcg Lidocaine (Lidoderm) 1 ea TD DAILY [facility] Last Admin: 12/07/17 09:48 Dose: 1 ea Loperamide HCl (Imodium) 2 mg PO TID PRN PRN Reason: Diarrhea Metoclopramide HCl (Reglan) 5 mg IVP Q6 [facility] Stop: 12/08/17 06:01 Last Admin: 12/07/17 12:57 Dose: 5 mg Pantoprazole Sodium (Protonix Ec Tab) 40 mg PO DAILY [facility] Last Admin: 12/07/17 09:48 Dose: 40 mg Rosuvastatin Calcium (Crestor) 5 mg PO HS [facility] Last Admin: 12/06/17 21:18 Dose: 5 mg Sitagliptin Phosphate (Januvia) 25 mg PO DAILY [facility] Last Admin: 12/06/17 10:25 Dose: 25 mg Vitamin B Complex/Vitamin C (Berocca) 1 tab PO DAILY [facility] Last Admin: 12/07/17 09:48 Dose: 1 tab - Labs Labs: 12/06/17 07:12 12/06/17 07:12 PT 13.4 SECONDS (9.7-12.2) H 12/06/17 07:12 INR 1.2 12/06/17 07:12 APTT 28 SECONDS (21-34) 12/06/17 07:12 - Constitutional Appears: Well - Head Exam Head Exam: ATRAUMATIC, NORMAL INSPECTION, NORMOCEPHALIC - Eye Exam Eye Exam: EOMI, Normal appearance, PERRL Pupil Exam: NORMAL ACCOMODATION, PERRL - ENT Exam ENT Exam: Mucous Membranes Moist, Normal Exam - Neck Exam Neck Exam: Full ROM, Normal Inspection. absent: Lymphadenopathy - Respiratory Exam Respiratory Exam: Decreased Breath Sounds - Cardiovascular Exam Cardiovascular Exam: REGULAR RHYTHM, +S1, +S2 - GI/Abdominal Exam GI & Abdominal Exam: Soft, Diminished Bowel Sounds - Rectal Exam Rectal Exam: Deferred Assessment and Plan (1) Diabetes Status: Acute (2) Abdominal pain Status: Acute (3) Colitis Status: Acute (4) Diarrhea Status: Acute (5) Hypertension Status: Acute - Assessment and Plan (Free Text) Plan: Diarrhea still persists Ultrasound report discussed with the patient's Colonoscopy study tomorrow morning I discussed with the nurse Imodium as ordered Flagyl as ordered
[2017-12-07] MEDS: Dextrose 5%/0.45% NS 1,000 ML IV SCH (23:35)
[2017-12-08] MEDS: Levothyroxine 25 MCG TAB PO SCH (05:38)
[2017-12-08] MEDS: (Novolin R) Insulin Human Regular 100 units/ml vial SC SCH ×4 (08:00→21:40)
[2017-12-08] MEDS ORDERED: Propofol 10 mg/ml Inj (20 ML) ONE (08:07)
--- NOTE | 2017-12-08 09:52 | CON ---
DATE: 12/05/[address] Alvarado to Dr. Renetta Waters. I was called for a GI consultation by the admitting medical team as well as the ER staff. The patient is seen and fully examined on 12/05/2017 as requested by the admitting medical team. A short handwriting consultation sheet left in the chart. HISTORY OF PRESENT ILLNESS: This is a 67-year-old female seen and examined for GI consultation. The entire chart is reviewed including, but not limited to the most recent lab and radiology study results, current and the previous medication lists, current and the previous medical events, allergy to medication list as well as all the available current and the previous medical records. The patient was seen here in my office due to severe crampy profuse abdominal pain, profuse diarrhea, dyspepsia with occasional nausea and rare vomiting, generalized weakness and malaise with muscle spasms for which she was advised to be evaluated in the emergency room. Subsequently, the patient was admitted. The patient denied any actual chest pain or palpitation. No actual shortness of breath but recent body weight loss. Traces of fresh blood was noticed in the stool with mucoid exudate as per the patient's son statement as a wig sales consultant. As outpatient apparently, the patient was given Lomotil and Levaquin which made her condition much worse as per the patient's statement. PAST MEDICAL HISTORY: Including but not limited to hypothyroidism, hyperlipidemia, peptic ulcer disease, osteoporosis with unspecified colitis as it was reported. SOCIAL HISTORY: No known history of cigarette smoking or alcohol intake. FAMILY HISTORY: Unknown. CURRENT MEDICATIONS: Medication list post admission was reviewed. ALLERGIES TO MEDICATIONS: Unknown. LABORATORY DATA: After being admitted to the hospital, initial blood workup showed normal CBC with blood glucose level 131, potassium 3.3 with low calcium. PHYSICAL EXAMINATION: GENERAL: A 67-year-old female seen with her family at the bedside, including her son as wig sales consultant on 12/05/2017. Appears to be awake, alert, oriented. Complaining of crampy abdominal pain with dizziness. VITAL SIGNS: Afebrile with pulse of 96, respiratory rate 20-22, blood pressure 110/70. HEENT: Showed pale dry oral mucous membrane mildly, nonicteric sclerae. LYMPH NODES: No lymphadenitis or lymphadenopathy. LUNGS: Few scattered mild crepitation. Decreased air entry at bases slightly. HEART: Positive S1 and S2 with increased rate. ABDOMEN: Soft. Bowel sounds are present with [id number] distention and diffuse tenderness. No mass or organomegaly. No rebound tenderness or guarding. RECTAL EXAMINATION: guaiac positive stool with mucoid exudate. EXTREMITIES: Without significant clubbing, cyanosis or edema. NEUROLOGIC: No reported new neurological deficits, sensory or motor. No reported new focal deficits. No focal deficits reported newly. It has to be mentioned that the patient appears to have muscle tenderness with evidence of myositis clinically that could be related to her condition. IMPRESSION: 1. Diarrhea with mucoid exudate and guaiac-positive stools of possibility of pseudomembranous colitis, drug induced , versus less likely early stage of inflammatory bowel disease. 2. To rule out re-exacerbation of peptic ulcer disease. 3. Past medical history as mentioned above. 4. New onset of hyperglycemia of unclear etiology. 5. Electrolyte imbalance with hypokalemia, most likely secondary to her diarrhea. 6 To rule out occult gastrointestinal malignancy, less likely. 7. Re-exacerbation of peptic ulcer disease with recurrent episodes of nausea, dyspepsia with occasional vomiting. SUGGESTIONS: 1. Agree with your plan. 2. Rehydration. 3. Correct any underlying electrolyte imbalance. 4. Peripheral hyperalimentation. 5. Proton pump inhibitors. 6. Flagyl IV. 7. Cancer markers including CEA, CA 19/9 and CA-125. 8. Further recommendation to follow. 9. Sectional abdominal and pelvic CT scan to be kept in mind. 10. Endoscopic evaluation of the GI tract if the patient's symptoms persist. It has to be mentioned that the case discussed at length with the admitting medical team. Thank you for letting me to participate in your patient's case management. Marlin Alvarado MD
[2017-12-08] MEDS: metroNIDAZOLE IV 500 mg/100 ml 500 MG/100 ML BAG IVPB SCH ×2 (10:21→18:01)
[2017-12-08] MEDS: Lidocaine 5% Patch TD SCH (10:22)
[2017-12-08] MEDS: Pantoprazole 40 mg EC Tab PO SCH (10:22)
[2017-12-08] MEDS: Enoxaparin 40 mg Syringe SC SCH (10:23)
[2017-12-08] MEDS: Vitamin B Complex/Vitamin C Tab PO SCH (10:36)
--- NOTE | 2017-12-08 13:25 | CP.PCM.PN ---
Subjective - Date & Time of Evaluation Date of Evaluation: 12/08/17 Time of Evaluation: 07:20 - Subjective Subjective: clinically same Objective - Vital Signs/Intake and Output Vital Signs (last 24 hours): Temp Pulse Resp BP Pulse Ox 97.3 F L 80 20 96/61 L 100 12/08/17 10:06 12/08/17 10:06 12/08/17 10:06 12/08/17 10:06 12/08/17 10:06 Intake and Output: 12/08/17 12/08/17 06:59 18:59 Intake Total 1300 400 Balance 1300 400 - Medications Medications: Current Medications Cyanocobalamin (Vitamin B12 1000 Mcg Tab) 1,000 mcg PO DAILY [facility] Last Admin: 12/08/17 10:23 Dose: 1,000 mcg Dextrose (Dextrose 50% Inj) 0 ml IV STAT PRN; Protocol PRN Reason: Hypoglycemia Protocol Last Admin: 12/06/17 22:06 Dose: 50 ml Dextrose (Glutose 15) 0 gm PO ONCE PRN; Protocol PRN Reason: Hypoglycemia Protocol Enoxaparin Sodium (Lovenox) 40 mg SC DAILY [facility] Last Admin: 12/08/17 10:23 Dose: 40 mg Glimepiride (Amaryl) 4 mg PO DAILY [facility] Last Admin: 12/06/17 10:26 Dose: 4 mg Glucagon (Glucagen Diagnostic Kit) 0 mg IM STAT PRN; Protocol PRN Reason: Hypoglycemia Protocol Metronidazole (Flagyl) 500 mg in 100 mls @ 100 mls/hr IVPB BID [facility] PRN Reason: Protocol Last Admin: 12/08/17 10:21 Dose: 100 mls/hr Dextrose (Dextrose 5% In Water 1000 Ml) 1,000 mls @ 0 mls/hr IV .Q0M PRN; Protocol; Per Protocol PRN Reason: Hypoglycemia Protocol Insulin Human Regular (Novolin R) 0 unit SC ACHS [facility] PRN Reason: Protocol Last Admin: 12/08/17 12:38 Dose: 1 unit Levothyroxine Sodium (Synthroid) 25 mcg PO 0630 [facility] Last Admin: 12/08/17 05:38 Dose: Not Given Lidocaine (Lidoderm) 1 ea TD DAILY [facility] Last Admin: 12/08/17 10:22 Dose: 1 ea Loperamide HCl (Imodium) 2 mg PO TID PRN PRN Reason: Diarrhea Pantoprazole Sodium (Protonix Ec Tab) 40 mg PO DAILY [facility] Last Admin: 12/08/17 10:22 Dose: 40 mg Rosuvastatin Calcium (Crestor) 5 mg PO HS [facility] Last Admin: 12/07/17 21:11 Dose: 5 mg Sitagliptin Phosphate (Januvia) 25 mg PO DAILY [facility] Last Admin: 12/06/17 10:25 Dose: 25 mg Vitamin B Complex/Vitamin C (Berocca) 1 tab PO DAILY [facility] Last Admin: 12/08/17 10:36 Dose: 1 tab - Labs Labs: 12/06/17 07:12 12/06/17 07:12 PT 13.4 SECONDS (9.7-12.2) H 12/06/17 07:12 INR 1.2 12/06/17 07:12 APTT 28 SECONDS (21-34) 12/06/17 07:12 - Constitutional Appears: Well - Head Exam Head Exam: ATRAUMATIC, NORMAL INSPECTION, NORMOCEPHALIC - Eye Exam Eye Exam: EOMI, Normal appearance, PERRL Pupil Exam: NORMAL ACCOMODATION, PERRL - ENT Exam ENT Exam: Mucous Membranes Moist, Normal Exam - Neck Exam Neck Exam: Full ROM, Normal Inspection. absent: Lymphadenopathy - Respiratory Exam Respiratory Exam: Decreased Breath Sounds - Cardiovascular Exam Cardiovascular Exam: REGULAR RHYTHM, +S1, +S2 - GI/Abdominal Exam GI & Abdominal Exam: Soft, Diminished Bowel Sounds - Rectal Exam Rectal Exam: Deferred Assessment and Plan (1) Diabetes Status: Acute (2) Abdominal pain Status: Acute (3) Colitis Status: Acute (4) Diarrhea Status: Acute (5) Hypertension Status: Acute - Assessment and Plan (Free Text) Plan: Diarrhea workup For colonoscopy today Follow-up with the GI Follow-up with the workup Patient may need a biopsy As ordered
--- NOTE | 2017-12-09 05:52 | CP.PCM.PN ---
Subjective - Date & Time of Evaluation Date of Evaluation: 12/09/17 Time of Evaluation: 05:43 - Subjective Subjective: PGY-[address] Waters's service: Pt seen and examined at bedside. Nursing reports no acute events overnight. Pt for endoscopy this AM with Dr. Horowitz. Patient reports abd pain and diarrhea have improved since admission. Denies fever, chills, SOB, chest pain, N/V. Objective - Vital Signs/Intake and Output Vital Signs (last 24 hours): Temp Pulse Resp BP Pulse Ox 98.1 F 73 20 99/61 L 98 12/08/17 23:44 12/08/17 23:44 12/08/17 23:44 12/08/17 23:44 12/08/17 23:44 Intake and Output: 12/08/17 12/09/17 18:59 06:59 Intake Total 1100 750 Balance 1100 750 - Medications Medications: Current Medications Cyanocobalamin (Vitamin B12 1000 Mcg Tab) 1,000 mcg PO DAILY [facility] Last Admin: 12/08/17 10:23 Dose: 1,000 mcg Dextrose (Dextrose 50% Inj) 0 ml IV STAT PRN; Protocol PRN Reason: Hypoglycemia Protocol Last Admin: 12/06/17 22:06 Dose: 50 ml Dextrose (Glutose 15) 0 gm PO ONCE PRN; Protocol PRN Reason: Hypoglycemia Protocol Enoxaparin Sodium (Lovenox) 40 mg SC DAILY [facility] Last Admin: 12/08/17 10:23 Dose: 40 mg Glimepiride (Amaryl) 4 mg PO DAILY [facility] Last Admin: 12/06/17 10:26 Dose: 4 mg Glucagon (Glucagen Diagnostic Kit) 0 mg IM STAT PRN; Protocol PRN Reason: Hypoglycemia Protocol Metronidazole (Flagyl) 500 mg in 100 mls @ 100 mls/hr IVPB BID KEVIN PRN Reason: Protocol Last Admin: 12/08/17 18:01 Dose: 100 mls/hr Insulin Human Regular (Novolin R) 0 unit SC ACHS [facility] PRN Reason: Protocol Last Admin: 12/08/17 21:40 Dose: Not Given Levothyroxine Sodium (Synthroid) 25 mcg PO 0630 [facility] Last Admin: 12/08/17 05:38 Dose: Not Given Lidocaine (Lidoderm) 1 ea TD DAILY [facility] Last Admin: 12/08/17 10:22 Dose: 1 ea Loperamide HCl (Imodium) 2 mg PO TID PRN PRN Reason: Diarrhea Pantoprazole Sodium (Protonix Ec Tab) 40 mg PO DAILY [facility] Last Admin: 12/08/17 10:22 Dose: 40 mg Rosuvastatin Calcium (Crestor) 5 mg PO HS [facility] Last Admin: 12/08/17 21:37 Dose: 5 mg Sitagliptin Phosphate (Januvia) 25 mg PO DAILY [facility] Last Admin: 12/06/17 10:25 Dose: 25 mg Vitamin B Complex/Vitamin C (Berocca) 1 tab PO DAILY [facility] Last Admin: 12/08/17 10:36 Dose: 1 tab - Labs Labs: 12/06/17 07:12 12/06/17 07:12 PT 13.4 SECONDS (9.7-12.2) H 12/06/17 07:12 INR 1.2 12/06/17 07:12 APTT 28 SECONDS (21-34) 12/06/17 07:12 - Additional Findings Additional findings: - Constitutional Appears: Non-toxic, No Acute Distress - Head Exam Head Exam: ATRAUMATIC, NORMAL INSPECTION - Eye Exam Eye Exam: EOMI. absent: Scleral icterus Pupil Exam: PERRL - ENT Exam ENT Exam: Mucous Membranes Moist - Neck Exam Neck Exam: Full ROM - Respiratory Exam Respiratory Exam: Clear to Ausculation Bilateral, NORMAL BREATHING PATTERN. absent: Rales, Rhonchi, Wheezes - Cardiovascular Exam Cardiovascular Exam: REGULAR RHYTHM, +S1, +S2 - GI/Abdominal Exam GI & Abdominal Exam: Soft, Normal Bowel Sounds. absent: Distended, Firm, Guarding, Tenderness, Rebound Additional comments: no rovsing/escoto/mcburney - Extremities Exam Extremities Exam: Normal Inspection. absent: Pedal Edema, Tenderness - Back Exam Back Exam: absent: CVA tenderness (L), CVA tenderness (R) - Neurological Exam Neurological Exam: Alert, Awake, Oriented x3 - Psychiatric Exam Psychiatric exam: Normal Affect, Normal Mood - Skin Skin Exam: Dry, Normal Color, Warm Assessment and Plan - Assessment and Plan (Free Text) Plan: Intractable diarrhea, resolved Admit to med/surg No WBC, Afebrile Dr. Horowitz GI device sales consultant - help appreciated CT A/P (12/04/17): Air fluid levels noted throughout colon c/w hx of diarrhea. No colitis/obstruction. Hyperdensities in gallbladder wall that could represent gallstones. Small hiatal hernia. Groundglass opacity in in LLL that could represent area of pneumonitis. (see full report) Colonoscopy (12/08/17): Moderately congested mucosa in descending colon. Biopsy taken. Non-bleeding internal/external hemorrhoids. Moderate spasm in colon. Terminated early due to bradycardic episode. Prior Colonoscopy (08/2016): Non-bleeding external/internal hemorrhoids. Congested mucosa in distal descending colon. Biopsied. Moderate colonic spasm. Terminated early due to bradycardic episode. Endoscopy (12/09/17): Small hiatal hernia. Erythematous mucosa w/o bleeding in antrum. Biopsied for H pylori. Erythematous mucosa in duodenum - biopsied. Lipase 66 CEA, CA 19-9, CA 125 WNL Stool occult blood, fecal leukocytes, O&P - all negative C diff negative Flagyl 500mg IV Q12H - Zosyn x1 in ED - Cipro 500mg Q12H IV (Discontinued 12/06/17) Loperamide 2mg PO TID PRN Transaminitis AST/ALT 64/70 on admission Hepatitis panel negative US Abd (12/05/17): sludge in GB w/o evidence of acute cholecystitis. Fatty infiltration of the liver. Gallstones? CT A/P (12/04/17): Hyperdensities in gallbladder wall that could represent gallstones. US Abd (12/05/17): sludge in GB w/o evidence of acute cholecystitis. Fatty infiltration of the liver. BRADLEY US Abd (12/05/17): sludge in GB w/o evidence of acute cholecystitis. Fatty infiltration of the liver. Type two diabetes mellitus Well-controlled; A1C: 6.7 Accuchecks ACHS Hypoglycemia protocol Glimepiride 4mg PO daily Januvia 25mg PO Daily Crestor 5mg PO HS Hypothyroidism Synthroid 25mcg PO QAM TSH, Free T4 WNL Abnormal UA UA (12/04/17): 1+ LE, WBC 5/HPF, negative nitrate, clean catch Pt denies symptoms - no treatment Electrolyte abnormality K 3.3, repleted Stiff neck Lidocaine 5% patch Daily Prophylaxis Heart healthy diet Lovenox 40mg SC daily Protonix 40mg PO Daily [facility]CD[facility] Disposition: Diarrhea improved. Pt to follow outpatient with An Waters and Carlos Manuel. Discharged on one additional week of Flagyl per Dr. Waters. Toan Oscar PGY-[address] Waters
[2017-12-09] MEDS: Levothyroxine 25 MCG TAB PO SCH (06:30)
[2017-12-09] MEDS: (Novolin R) Insulin Human Regular 100 units/ml vial SC SCH ×2 (08:28→12:09)
[2017-12-09] MEDS ORDERED: Lidocaine Hydrochloride 5 ML INJ ONE (10:11)
[2017-12-09] MEDS ORDERED: Propofol 10 mg/ml Inj (20 ML) ONE (10:11)
[2017-12-09 10:45] VITALS: O2SAT 100
[2017-12-09] MEDS: Vitamin B Complex/Vitamin C Tab PO SCH ×2 (10:54→12:24)
[2017-12-09] MEDS: metroNIDAZOLE IV 500 mg/100 ml 500 MG/100 ML BAG IVPB SCH ×2 (10:54→12:26)
[2017-12-09] MEDS: Lidocaine 5% Patch TD SCH ×2 (10:55→12:25)
[2017-12-09] MEDS: Enoxaparin 40 mg Syringe SC SCH (10:55)
[2017-12-09] MEDS: Pantoprazole 40 mg EC Tab PO SCH ×2 (10:55→12:23)
[2017-12-09 11:57] VITALS: BP 108/65; PULSE 75; RESP 18; TEMP 98
[2017-12-09] MEDS ORDERED: LIPASE/PROTEASE/AMYLASE 21,000 U ECC PO SCH (14:00)
[2017-12-09 14:04] LABS: BASO % 0.5 % (0.0-2.0); EOS # 0.2 K/uL (0.0-0.7); HEMOGLOBIN 12.5 g/dL (11.0-16.0); LYMPH # 2.1 K/uL (1.0-4.3); LYMPH % 27.5 % (20.0-40.0); MEAN CELL VOLUME 85.5 fL (81.0-99.0); MEAN CORPUSCULAR HEMOGLOBIN 29.2 pg (27.0-31.0); MEAN CORPUSCULAR HGB CONC 34.2 g/dL (33.0-37.0); MEAN PLATELET VOLUME 8.2 fL (7.2-11.7); MONO # 0.7 K/uL (0.0-0.8); NEUT # 4.7 K/uL (1.8-7.0); NRBC % 0.1 % (0.0-2.0); RBC 4.29 Mil/uL (3.80-5.20); RED CELL DISTRIBUTION WIDTH 14.2 % (11.5-14.5); WHITE BLOOD COUNT 7.7 K/uL (4.8-10.8)
[2017-12-09 14:26] LABS: ALB/GLOB RATIO 0.9 (1.0-2.1); ALBUMIN 2.6 g/dL (3.5-5.0); ALT/SGPT 63 U/L (9-52); AST/SGOT 44 U/L (14-36); BLOOD UREA NITROGEN 3 mg/dL (7-17); CALCIUM 8.2 mg/dl (8.6-10.4); GFR AFRICAN-AMERICAN > 60; GFR NON-AFRICAN AMERICAN > 60
--- NOTE | 2017-12-09 15:06 | CP.PCM.PN ---
Subjective - Date & Time of Evaluation Date of Evaluation: 12/09/17 Time of Evaluation: 07:40 - Subjective Subjective: clinically same Objective - Vital Signs/Intake and Output Vital Signs (last 24 hours): Temp Pulse Resp BP Pulse Ox 98 F 75 18 108/65 100 12/09/17 11:30 12/09/17 11:30 12/09/17 11:30 12/09/17 11:30 12/09/17 11:30 Intake and Output: 12/09/17 12/09/17 06:59 18:59 Intake Total 750 470 Balance 750 470 - Medications Medications: Current Medications Cyanocobalamin (Vitamin B12 1000 Mcg Tab) 1,000 mcg PO DAILY [facility] Last Admin: 12/09/17 12:25 Dose: 1,000 mcg Dextrose (Dextrose 50% Inj) 0 ml IV STAT PRN; Protocol PRN Reason: Hypoglycemia Protocol Last Admin: 12/06/17 22:06 Dose: 50 ml Dextrose (Glutose 15) 0 gm PO ONCE PRN; Protocol PRN Reason: Hypoglycemia Protocol Enoxaparin Sodium (Lovenox) 40 mg SC DAILY [facility] Last Admin: 12/09/17 10:55 Dose: Not Given Glimepiride (Amaryl) 4 mg PO DAILY [facility] Last Admin: 12/06/17 10:26 Dose: 4 mg Glucagon (Glucagen Diagnostic Kit) 0 mg IM STAT PRN; Protocol PRN Reason: Hypoglycemia Protocol Metronidazole (Flagyl) 500 mg in 100 mls @ 100 mls/hr IVPB BID KEVIN PRN Reason: Protocol Last Admin: 12/09/17 12:26 Dose: 100 mls/hr Insulin Human Regular (Novolin R) 0 unit SC ACHS [facility] PRN Reason: Protocol Last Admin: 12/09/17 12:09 Dose: Not Given Levothyroxine Sodium (Synthroid) 25 mcg PO 0630 [facility] Last Admin: 12/09/17 06:30 Dose: Not Given Lidocaine (Lidoderm) 1 ea TD DAILY [facility] Last Admin: 12/09/17 12:25 Dose: 1 ea Loperamide HCl (Imodium) 2 mg PO TID PRN PRN Reason: Diarrhea Pantoprazole Sodium (Protonix Ec Tab) 40 mg PO DAILY [facility] Last Admin: 12/09/17 12:23 Dose: 40 mg Rosuvastatin Calcium (Crestor) 5 mg PO HS [facility] Last Admin: 12/08/17 21:37 Dose: 5 mg Sitagliptin Phosphate (Januvia) 25 mg PO DAILY [facility] Last Admin: 12/06/17 10:25 Dose: 25 mg Vitamin B Complex/Vitamin C (Berocca) 1 tab PO DAILY [facility] Last Admin: 12/09/17 12:24 Dose: 1 tab - Labs Labs: 12/09/17 13:48 12/09/17 13:48 PT 13.4 SECONDS (9.7-12.2) H 12/06/17 07:12 INR 1.2 12/06/17 07:12 APTT 28 SECONDS (21-34) 12/06/17 07:12 - Constitutional Appears: Well - Head Exam Head Exam: ATRAUMATIC, NORMAL INSPECTION, NORMOCEPHALIC - Eye Exam Eye Exam: EOMI, Normal appearance, PERRL Pupil Exam: NORMAL ACCOMODATION, PERRL - ENT Exam ENT Exam: Mucous Membranes Moist, Normal Exam - Neck Exam Neck Exam: Full ROM, Normal Inspection. absent: Lymphadenopathy - Respiratory Exam Respiratory Exam: Decreased Breath Sounds - Cardiovascular Exam Cardiovascular Exam: REGULAR RHYTHM, +S1, +S2 - GI/Abdominal Exam GI & Abdominal Exam: Soft, Diminished Bowel Sounds - Rectal Exam Rectal Exam: Deferred Assessment and Plan (1) Diabetes Status: Acute (2) Abdominal pain Status: Acute (3) Colitis Status: Acute (4) Diarrhea Status: Acute (5) Hypertension Status: Acute
== END 2017-12-09 17:51 | disposition home or self-care (01) | DRG 392 ==
LOC: C.ER 15:10 → C.9E 20:33 → C.3T 12-05 02:25
PROVIDERS: ADMIT Internal Medicine Nephrology; ATTEND Internal Medicine Nephrology
PROC: 0DBE8ZX Excision of Large Intestine, Via Natural or Artificial Opening Endoscopic, Diagnostic (ICD-10-PCS; principal; 2017-12-08 08:45)
PROC: 0DB68ZX Excision of Stomach, Via Natural or Artificial Opening Endoscopic, Diagnostic (ICD-10-PCS; 2017-12-09)
DX: K52.9 Noninfective gastroenteritis and colitis, unspecified (principal); E87.2 Acidosis; E46 Unspecified protein-calorie malnutrition; E87.6 Hypokalemia; E78.5 Hyperlipidemia, unspecified; I10 Essential (primary) hypertension; E11.65 Type 2 diabetes mellitus with hyperglycemia; E03.9 Hypothyroidism, unspecified; K64.8 Other hemorrhoids; R00.1 Bradycardia, unspecified; K58.9 Irritable bowel syndrome, unspecified; K44.9 Diaphragmatic hernia without obstruction or gangrene; K29.80 Duodenitis without bleeding; K29.70 Gastritis, unspecified, without bleeding